=== PATIENT | male | born 1970 | race Two or more races ===

== ENCOUNTER → 2017-02-20 | Day surgery (SDC) | payer OTHER ==
[~2017-02-20] MED LIST: ACETAMINOPHEN 325 MG TABLET ONE; ACETAMINOPHEN 325 MG TABLET PO PRN; ACETAMINOPHEN 650 MG/SUPP.RECT RC PRN; ANESTHESIA TRAY IN PYXIS 1 EA TRAY MC ONE; BUPIVACAINE 0.5 % PF 150 MG/30 ML VIAL ONE; CELECOXIB 100 MG CAPSULE ONE; FENTANYL PF 100MCG/2ML AMPUL ONE; HEMOSTATIC MATRIX 10 ML 1 EACH PAD MC ONE; HYDROMORPHONE INJ 2 MG/ML DISP.SYRIN IV PRN; HYDROMORPHONE INJ 2 MG/ML DISP.SYRIN ONE; KETOROLAC TROMETHAMINE INJ 30 MG/ML VIAL ONE; LIDOCAINE 0.5%-EPI 1:200,000 50 ML VIAL ONE; METHYLENE BLUE 10 ML VIAL IJ ONE; MIDAZOLAM HCL 2 MG/2ML VIAL ONE; ONDANSETRON HCL/PF 4 MG/2 ML VIAL IV PRN; ROCURONIUM BROMIDE 50 MG/5 ML ONE; methylPREDNISolone ACETATE 80 MG/ML VIAL ONE; oxyCODONE HCL SR 20MG TAB.SR.12H PO ONE; oxyCODONE/APAP (5/325 MG) 1 UDTAB TABLET ONE; oxyCODONE/APAP (5/325 MG) 1 UDTAB TABLET PO PRN
== END | disposition home or self-care (01) ==
LOC: DS 09:54
PROVIDERS: ATTEND Specialist
DX: M51.16 Intervertebral disc disorders with radiculopathy, lumbar region (principal); K21.9 Gastro-esophageal reflux disease without esophagitis; Z88.8 Allergy status to other drugs, medicaments and biological substances
CPT/HCPCS: 63030; 72020; 88304; 88305; 88311; A6209; A6402 ×2; J0690; J1040; J1100; J1170; J1885; J2250; J2405; J2704; J2710; J3010; J3490 ×4; J7030; Q9968; Z7610